=== PATIENT | male | born 1975 | race Caucasian/White ===

== ENCOUNTER 2017-10-08 17:35 | Emergency (ER) | payer BC ==
[2017-10-08 17:47] VITALS: BP 152/103
--- NOTE | 2017-10-08 20:42 | EDM.PDOC ---
ED HPI GENERAL MEDICAL PROBLEM - General Chief Complaint: Cardiovascular Problem Stated Complaint: HIGH BP Time Seen by Provider: 10/08/17 18:30 Source of Information: Reports: Patient History Limitations: Reports: No Limitations - History of Present Illness INITIAL COMMENTS - FREE TEXT/NARRATIVE: 41-year-old male presents for evaluation treatment of high blood pressure. Upon arrival to the ER the patient's blood pressure is 152/103. upon My examination around 1830 blood pressure is now 140/93. Patient reports that he was in the [place] ER about 3 days ago for high blood pressure and bilateral leg swelling. He states he was not feeling well and beam saw operator measured his blood pressure at 170/120. He is instructed to go to the ER. States that he did not have a testing done in the [facility]. He was started on hydrochlorothiazide instructed to follow-up with his primary care provider in 10 days. He has been taking the hydrochlorothiazide for the last 3 days. His leg swelling has significantly improved. He states he continues to have high blood pressures. Reports that his blood pressure was 157/104 around 3 AM yesterday. He states today at 4:25 AM it was 154/109. Patient reports that he has some "chest soreness ". States this is on the left side of his chest. He does not have any shortness of breath, headache, double vision, nausea or vomiting. Patient reports he has appreciated some blurriness to his right eye. He normally wears contacts and has been wearing his glasses recently. He is unsure if the glasses have improved to the blurry vision. 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 He states that he is an active work. He has to quit home. He states that he can walk up 3 flights of steps stairs but would likely have shortness of breath and will have to stop. - Related Data Allergies Allergy/AdvReac Type Severity Reaction Status Date / Time prednisone Allergy Other Verified 10/08/17 17:47 Home Meds: Home Meds Hydrochlorothiazide 12.5 mg PO DAILY 10/08/17 [History] Past Medical History - Past Health History Medical/Surgical History: Denies Medical/Surgical History Cardiovascular History: Reports: Hypertension, Other (See Below) Other Cardiovascular History: leg swelling Other Musculoskeletal History: surgery on left wrist - Infectious Disease History Infectious Disease History: Reports: Chicken Pox, Influenza Social & Family History - Family History Family Medical History: Noncontributory - Tobacco Use Smoking Status *Q: Never Smoker Second Hand Smoke Exposure: No - Caffeine Use Caffeine Use: Reports: Soda, Tea - Recreational Drug Use Recreational Drug Use: No ED ROS GENERAL - Review of Systems Review Of Systems: See Below Constitutional: Denies: Fever HEENT: Denies: Ear Pain Respiratory: Denies: Shortness of Breath, Cough Cardiovascular: Reports: Dyspnea on Exertion, Edema. Denies: Chest Pain ( reports chest soreness) GI/Abdominal: Denies: Abdominal Pain, Nausea, Vomiting Neurological: Denies: Dizziness, Headache, Syncope ED EXAM, GENERAL - Physical Exam Exam: See Below Exam Limited By: No Limitations General Appearance: Alert, WD/WN, No Apparent Distress, Obese Eye Exam: Bilateral Eye: Normal Inspection, PERRL Ears: Normal External Exam, Normal Canal, Hearing Grossly Normal, Normal TMs Nose: Normal Inspection Throat/Mouth: Normal Inspection, Normal Lips, Normal Voice, No Airway Compromise Respiratory/Chest: No Respiratory Distress, Lungs Clear, Normal Breath Sounds Cardiovascular: Normal Peripheral Pulses, Regular Rate, Rhythm, No Murmur, Other (trace pedal edema bilaterally) Neurological: Alert, Oriented, Normal Cognition Psychiatric: Normal Affect, Normal Mood Skin Exam: Warm, Dry, Normal Color EKG INTERPRETATION EKG Date: 10/08/17 Time: 18:00 Rhythm: NSR Rate (Beats/Min): 113 [place]: Normal P-Wave: Present QRS: Normal ST-T: Normal QT: Normal Course - Vital Signs Last Recorded V/S: Last Vital Signs Temp 36.3 C 10/08/17 17:39 Pulse 108 H 10/08/17 17:39 Resp 18 10/08/17 17:39 BP 152/103 H 10/08/17 17:39 Pulse Ox 94 L 10/08/17 17:39 - Orders/Labs/Meds Labs: Laboratory Tests 10/08/17 10/08/17 10/08/17 Range/Units 19:00 19:00 19:23 WBC 11.11 H (4.23-9.07) K/mm3 RBC 5.69 (4.63-6.08) M/mm3 Hgb 16.0 (13.7-17.5) gm/L Hct 46.7 (40.1-51.0) % MCV 82.1 (79.0-92.2) fl MCH 28.1 (25.7-32.2) pg MCHC 34.3 (32.2-35.5) g/dl RDW Std Deviation 41.2 (35.1-43.9) fL Plt Count 400 H (163-337) K/mm3 MPV 8.4 L (9.4-12.3) fl Neut % (Auto) 66.4 (34.0-67.9) % Lymph % (Auto) 21.7 L (21.8-53.1) % [place] % (Auto) 9.7 (5.3-12.2) % Eos % (Auto) 1.5 (0.8-7.0) Baso % (Auto) 0.5 (0.1-1.2) % Neut # (Auto) 7.37 H (1.78-5.38) K/mm3 Lymph # (Auto) 2.41 (1.32-3.57) K/mm3 [place] # (Auto) 1.08 H (0.30-0.82) K/mm3 Eos # (Auto) 0.17 (0.04-0.54) K/mm3 Baso # (Auto) 0.06 (0.01-0.08) K/mm3 Sodium 142 (136-145) mEq/L Potassium 3.8 (3.5-5.1) mEq/L Chloride 104 (98-107) mEq/L Carbon Dioxide 27 (21-32) mEq/L Anion Gap 14.8 (5-15) BUN 13 (7-18) mg/dL Creatinine 0.9 (0.7-1.3) mg/dL Est Cr Clr Drug Dosing 103.44 mL/min Estimated GFR (MDRD) > 60 (>60) mL/min BUN/Creatinine Ratio 14.4 (14-18) Glucose 108 H (74-106) mg/dL Calcium 9.4 (8.5-10.1) mg/dL Total Bilirubin 0.3 (0.2-1.0) mg/dL AST 20 (15-37) U/L ALT 46 (16-63) U/L Alkaline Phosphatase 97 (46-116) U/L Troponin I < 0.017 (0.00-0.056) ng/mL NT-Pro-B Natriuret Pep 8 (0-125) pg/mL Total Protein 7.7 (6.4-8.2) g/dl Albumin 3.7 (3.4-5.0) g/dl Globulin 4.0 gm/dL Albumin/Globulin Ratio 0.9 L (1-2) Urine Color Yellow (Yellow) Urine Appearance Clear (Clear) Urine pH 5.5 (5.0-8.0) Ur Specific [place] 1.025 (1.005-1.030) Urine Protein Negative (Negative) Urine Glucose (UA) Negative (Negative) Urine Ketones Negative (Negative) Urine Occult Blood Negative (Negative) Urine Nitrite Negative (Negative) Urine Bilirubin Negative (Negative) Urine Urobilinogen 0.2 (0.2-1.0) Ur Leukocyte Esterase Negative (Negative) - Radiology Interpretation Free Text/Narrative:: chest xray shows no acute intrathoracic process. - Re-Assessments/Exams Free Text/Narrative Re-Assessment/Exam: 10/08/17 20:37 I reviewed the labs, xray and ekg with the patient. His blood pressure has remainder under 160s systolic while in the ER. b/ps for the most part have been 130s t o140s systolic. I will have him continue the HCTZ. Educated we want to lower blood pressure slowly when no emergency is present. Expresses understanding. Plan is to monitor blood pressure daily. Continue with HCTZ daily. Follow-up in 1-2 weeks with PCP. Encouraged exercise and a healthy diet. Discharge instructions as documented. Departure - Departure Time of Disposition: 20:40 Disposition: Home, Self-Care 01 Condition: Good Clinical Impression: High blood pressure Instructions: Hypertension, [id number] Referrals: Tio Rodriguez MD [Primary Care Provider] - Forms: ED Department Discharge Additional Instructions: Follow-up with your primary care provider in 1-2 weeks for recheck of your symptoms. Continue on your hydrochlorothiazide. Continue checking your blood pressures daily. Check your blood pressure 1 time a day around same time. If you have swelling your legs recommend, monitor your salt intake and elevating your legs. Please return to the ER if your symptoms change or worsen.
--- NOTE | 2017-10-11 16:01 | CR ---
Chest: Portable view of the chest was obtained. Comparison: Prior chest x-ray is not available. Heart size and mediastinum are normal. Lungs are clear. Bony structures are grossly intact. Impression: 1. Nothing acute is identified on portable chest x-ray. Diagnostic code #1
== END 2017-10-08 20:50 | disposition home or self-care (01) ==
LOC: JD.ED 17:35
DX: I10 Essential (primary) hypertension (principal); Z88.5 Allergy status to narcotic agent; Z79.899 Other long term (current) drug therapy
CPT/HCPCS: 36415; 71010; 71010-26; 80053; 81003; 83880; 84484; 85025; 93010; 99283; 99284-25

== ENCOUNTER 2017-12-05 18:11 | Emergency (ER) | payer BC ==
[2017-12-05 18:40] VITALS: BP 141/101
--- NOTE | 2017-12-05 20:22 | EDM.PDOC ---
ED HPI GENERAL MEDICAL PROBLEM - General Chief Complaint: Lower Extremity Injury/Pain Stated Complaint: L THIGH NUMBNESS W/BURNING IRRITATION Time Seen by Provider: 12/05/17 18:55 Source of Information: Reports: Patient History Limitations: Reports: No Limitations - History of Present Illness INITIAL COMMENTS - FREE TEXT/NARRATIVE: The patient presents with numbness and pain to both thighs. This has been going on for almost 2 years but it has gotten worse. The numbness is to the anterior thighs. The left has been getting worse the past few weeks. He denies any injury and he has no back pain with it. He has gained some weight recently. He has been looking for a job. He has some troubles at night sleeping because of the pain. He denies fever, chills, chest pain, shortness of breath, abdominal pain, nausea or vomiting. He has no weakness to his legs. Onset: Gradual Duration: Week(s): Location: Reports: Lower Extremity, Left, Lower Extremity, Right Quality: Reports: Ache (and numbness) Severity: Moderate Improves with: Reports: None Worsens with: Reports: None Associated Symptoms: Reports: No Other Symptoms Left Leg Pain Score (Numeric/FACES): 0 - Related Data Allergies Allergy/AdvReac Type Severity Reaction Status Date / Time prednisone Allergy Other Verified 12/05/17 18:36 Home Meds: Home Meds Hydrochlorothiazide 12.5 mg PO DAILY 10/08/17 [History] Past Medical History - Past Health History Medical/Surgical History: Denies Medical/Surgical History Cardiovascular History: Reports: Hypertension, Other (See Below) Other Cardiovascular History: leg swelling Other Musculoskeletal History: surgery on left wrist - Infectious Disease History Infectious Disease History: Reports: Chicken Pox, Influenza Social & Family History - Family History Family Medical History: Noncontributory - Tobacco Use Smoking Status *Q: Never Smoker Second Hand Smoke Exposure: No - Caffeine Use Caffeine Use: Reports: Soda, Tea - Recreational Drug Use Recreational Drug Use: No Review of Systems - Review of Systems Review Of Systems: See Below Constitutional: Reports: No Symptoms Eyes: Reports: No Symptoms Ears: Reports: No Symptoms Nose: Reports: No Symptoms Mouth/Throat: Reports: No Symptoms Respiratory: Reports: No Symptoms Cardiovascular: Reports: No Symptoms GI/Abdominal: Reports: No Symptoms Genitourinary: Reports: No Symptoms Musculoskeletal: Reports: Other (Numbness and pain to both anterior thighs) ED EXAM, GENERAL - Physical Exam Exam: See Below Exam Limited By: No Limitations General Appearance: Alert, No Apparent Distress Ears: Normal External Exam Nose: Normal Inspection Head: Atraumatic, Normocephalic Neck: Normal Inspection Respiratory/Chest: No Respiratory Distress, Lungs Clear, Normal Breath Sounds Cardiovascular: Regular Rate, Rhythm, No Edema, No Murmur GI/Abdominal: Soft, Non-Tender, No Organomegaly, No Mass Back Exam: Normal Inspection Extremities: Normal Inspection Neurological: Alert, Oriented, No Motor/Sensory Deficits Course - Vital Signs Last Recorded V/S: Last Vital Signs Temp 97.5 F 12/05/17 18:36 Pulse 120 H 12/05/17 18:36 Resp 18 12/05/17 18:36 BP 141/101 H 12/05/17 18:36 Pulse Ox 97 12/05/17 18:36 - Orders/Labs/Meds Orders: Active Orders 24 hr Category Date Time Status Cardiac Monitoring [RC] . DIRECTED Care 12/05/17 19:14 Active Labs: Laboratory Tests 12/05/17 12/05/17 Range/Units 19:32 19:32 WBC 11.02 H (4.23-9.07) K/mm3 RBC 5.37 (4.63-6.08) M/mm3 Hgb 14.9 (13.7-17.5) gm/L Hct 43.8 (40.1-51.0) % MCV 81.6 (79.0-92.2) fl MCH 27.7 (25.7-32.2) pg MCHC 34.0 (32.2-35.5) g/dl RDW Std Deviation 40.9 (35.1-43.9) fL Plt Count 338 H (163-337) K/mm3 MPV 8.1 L (9.4-12.3) fl Neut % (Auto) 73.1 H (34.0-67.9) % Lymph % (Auto) 18.1 L (21.8-53.1) % [place] % (Auto) 6.8 (5.3-12.2) % Eos % (Auto) 1.1 (0.8-7.0) Baso % (Auto) 0.5 (0.1-1.2) % Neut # (Auto) 8.07 H (1.78-5.38) K/mm3 Lymph # (Auto) 1.99 (1.32-3.57) K/mm3 [place] # (Auto) 0.75 (0.30-0.82) K/mm3 Eos # (Auto) 0.12 (0.04-0.54) K/mm3 Baso # (Auto) 0.05 (0.01-0.08) K/mm3 Sodium 139 (136-145) mEq/L Potassium 3.7 (3.5-5.1) mEq/L Chloride 104 (98-107) mEq/L Carbon Dioxide 24 (21-32) mEq/L Anion Gap 14.7 (5-15) BUN 13 (7-18) mg/dL Creatinine 1.0 (0.7-1.3) mg/dL Est Cr Clr Drug Dosing 92.15 mL/min Estimated GFR (MDRD) > 60 (>60) mL/min BUN/Creatinine Ratio 13.0 L (14-18) Glucose 195 H (74-106) mg/dL Calcium 8.9 (8.5-10.1) mg/dL Magnesium 2.1 (1.8-2.4) mg/dl Total Bilirubin 0.4 (0.2-1.0) mg/dL AST 22 (15-37) U/L ALT 48 (16-63) U/L Alkaline Phosphatase 77 (46-116) U/L Total Protein 7.6 (6.4-8.2) g/dl Albumin 3.8 (3.4-5.0) g/dl Globulin 3.8 gm/dL Albumin/Globulin Ratio 1.0 (1-2) - Re-Assessments/Exams Free Text/Narrative Re-Assessment/Exam: 12/05/17 20:26 His WBC was slightly elevated at 11.02. His platelets were elevated at 338. His glucose is elevated at 195. This appears to be meralgia paresthetica. He is on a diet and attempting to loose weight. I will have him try that and if that does not help, I will have him follow up with neurology. Departure - Departure Time of Disposition: 20:30 Disposition: Home, Self-Care 01 Condition: Good Clinical Impression: Meralgia paraesthetica Qualifiers: Laterality: unspecified laterality Qualified Code(s): G57.10 - Meralgia paresthetica, unspecified lower limb - Discharge Information Referrals: PCP,None [Primary Care Provider] - Forms: ED Department Discharge Additional Instructions: Try to loose some weight with the low carb and low calorie diet. Use the hydrocodone as needed. Follow up with neurology at [facility]. Their number is and ask for the neurology clinic. Please return if you are worse. - My Orders Last 24 Hours: My Active Orders 12/05/17 19:14 Cardiac Monitoring [RC] . DIRECTED - Assessment/Plan Last 24 Hours: My Active Orders 12/05/17 19:14 Cardiac Monitoring [RC] . DIRECTED
== END 2017-12-05 20:47 | disposition home or self-care (01) ==
LOC: JD.ED 18:11
DX: G57.12 Meralgia paresthetica, left lower limb (principal); I10 Essential (primary) hypertension; Z88.8 Allergy status to other drugs, medicaments and biological substances; Z79.899 Other long term (current) drug therapy
CPT/HCPCS: 36415; 80053; 83735; 85025; 99283; 99284

== ENCOUNTER 2018-01-30 09:37 | Emergency (ER) | payer BC ==
[2018-01-30 10:10] VITALS: BP 146/92
[2018-01-30] MEDS ORDERED: Naproxen 500 MG Tab PO ONE (11:08)
--- NOTE | 2018-01-30 11:12 | EDM.PDOC ---
ED HPI GENERAL MEDICAL PROBLEM - General Chief Complaint: Lower Extremity Injury/Pain Stated Complaint: RIGHT ANKLE INJURY Time Seen by Provider: 01/30/18 10:56 Source of Information: Reports: Patient History Limitations: Reports: No Limitations - History of Present Illness INITIAL COMMENTS - FREE TEXT/NARRATIVE: 42 y/o M with L ankle pain. Has had pain for a few days. No injury. Pain is diffusely about the ankle, worse on the lateral side, worse with walking, better with rest. Moderate pain. Hasn't taken anything for pain today. Had similar symptoms previously but it resolved without medical evaluation. Otherwise feels well. No additional joint pain. No fever. No additional complaint. Right Ankle Pain Score (Numeric/FACES): 3 - Related Data Allergies Allergy/AdvReac Type Severity Reaction Status Date / Time prednisone Allergy Other Verified 01/30/18 10:09 Home Meds: Home Meds Hydrochlorothiazide 12.5 mg PO DAILY 10/08/17 [History] Naproxen 500 mg PO BID #30 tablet 01/30/18 [Rx] predniSONE [Prednisone] 50 mg PO DAILY #5 tablet 01/30/18 [Rx] Past Medical History - Past Health History Medical/Surgical History: Denies Medical/Surgical History HEENT History: Reports: Impaired Vision Cardiovascular History: Reports: Hypertension, Other (See Below) Other Cardiovascular History: leg swelling Other Musculoskeletal History: surgery on left wrist Endocrine/Metabolic History: Reports: Obesity/BMI 30+ - Infectious Disease History Infectious Disease History: Reports: Chicken Pox, Influenza Social & Family History - Family History Family Medical History: Noncontributory - Tobacco Use Smoking Status *Q: Never Smoker Second Hand Smoke Exposure: No - Caffeine Use Caffeine Use: Reports: Soda, Tea - Recreational Drug Use Recreational Drug Use: No Review of Systems - Review of Systems Review Of Systems: See Below Constitutional: Denies: Fever Respiratory: Denies: Shortness of Breath Cardiovascular: Denies: Chest Pain GI/Abdominal: Denies: Abdominal Pain Musculoskeletal: Reports: Joint Pain Neurological: Reports: No Symptoms ED EXAM, GENERAL - Physical Exam Exam: See Below Exam Limited By: No Limitations General Appearance: Alert, WD/WN, No Apparent Distress Eye Exam: Bilateral Eye: Normal Inspection Throat/Mouth: Normal Inspection, Normal Voice Head: Atraumatic, Normocephalic Neck: Normal Inspection Respiratory/Chest: No Respiratory Distress Cardiovascular: Normal Peripheral Pulses Extremities: Normal Inspection, Other (Mild swelling and erythema of the R lateral malleolus area. Full ROM at the ankle. No tenderness of the foot. Foot is warm and well perfused. ) Neurological: Alert, Oriented, Normal Cognition Psychiatric: Normal Affect, Normal Mood Skin Exam: Warm, Dry, Intact, Normal Color, No Rash Course - Vital Signs Last Recorded V/S: Last Vital Signs Temp 36.5 C 01/30/18 10:06 Pulse 81 01/30/18 10:06 Resp 20 01/30/18 10:06 BP 146/92 H 01/30/18 10:06 Pulse Ox 98 01/30/18 10:06 - Orders/Labs/Meds Orders: Active Orders 24 hr Category Date Time Status DME for Discharge [COMM] Stat Oth 01/30/18 11:15 Ordered Meds: Medications Discontinued Medications Generic Name Dose Route Start Last Admin Trade Name Phaniq PRN Reason Stop Dose Admin Naproxen 500 mg 01/30/18 11:08 01/30/18 11:13 Naprosyn PO 01/30/18 11:09 500 mg ONETIME ONE Administration Prednisone 60 mg 01/30/18 11:08 Prednisone PO 01/30/18 11:09 ONETIME ONE - Re-Assessments/Exams Free Text/Narrative Re-Assessment/Exam: 01/30/18 11:26 Isolated ankle pain with no injury. Suspect gout. Will treat. Doesn't tolerate prednisone. Give >72 hours after symptom onset, will avoid colchicine and treat with naproxen alone. Discussed return precautions and need for f/u. Departure - Departure Time of Disposition: 11:09 Disposition: Home, Self-Care 01 Clinical Impression: Gout of right ankle Qualifiers: Gout etiology: unspecified cause Chronicity: acute Qualified Code(s): M10.9 - Gout, unspecified - Discharge Information Prescriptions: Naproxen 500 mg PO BID #30 tablet predniSONE [Prednisone] 50 mg PO DAILY #5 tablet Instructions: Gout, [id number] Referrals: PCPTerri [Primary Care Provider] - Forms: ED Department Discharge Additional Instructions: 1. Take prednisone as prescribed 2. Take naproxen as prescribed for pain and inflammation. Take twice daily as prescribed for a week. If you still have pain and inflammation in the ankle after a week, you can continue this medication. 3. Follow up with a primary care provider for further care. Call [phone] to schedule with a provider here. - My Orders Last 24 Hours: My Active Orders 01/30/18 11:15 DME for Discharge [COMM] Stat - Assessment/Plan Last 24 Hours: My Active Orders 01/30/18 11:15 DME for Discharge [COMM] Stat
[2018-01-30] MEDS: predniSONE 20 MG Tab PO ONE ×2 (11:13→11:26)
== END 2018-01-30 11:18 | disposition home or self-care (01) ==
LOC: JD.ED 09:37
DX: M10.9 Gout, unspecified (principal); I10 Essential (primary) hypertension; E66.9 Obesity, unspecified; Z88.8 Allergy status to other drugs, medicaments and biological substances; Z79.899 Other long term (current) drug therapy; Z68.42 Body mass index [BMI] 45.0-49.9, adult
CPT/HCPCS: 99283; A9270